=== PATIENT | male | born 1960 | race Caucasian/White ===

== ENCOUNTER 2017-10-15 19:14 | Inpatient (IN) ==
--- NOTE | 2017-10-15 20:12 | Emergency Department Note ---
Disposition Clinical Impression: Nonspecific ST-T wave electrocardiographic changes, Urinary retention Dyspnea Qualifiers: Dyspnea type: dyspnea on exertion Qualified Code(s): R06.09 - Other forms of dyspnea Chest pain Qualifiers: Chest pain type: unspecified Qualified Code(s): R07.9 - Chest pain, unspecified Disposition: Admitted As Inpatient Condition: Fair Time of Disposition: 22:28 General Adult HPI - General Chief complaint: ED General Medical Stated complaint: "kidney issues" Time Seen by Provider: 10/15/17 20:00 Source: patient, family Mode of arrival: ambulatory Limitations: no limitations Nursing Notes Reviewed: Yes Vital Signs Reviewed: Yes - History of Present Illness HPI Narrative: 56-year-old male with history of hypertension, CAD presents for evaluation of "kidney issues". Patient has difficulty urinating over the past week. States he has been dribbling. Patient also notes significant swelling in his hands and his feet. Notes dyspnea. Denies history of prostate issues. Denies any chest pain. Family states is been complaining of pain everywhere. Denies any fevers or cough. Patient does note some abdominal pain with diarrhea. Pain Scale: 10 - Related Data Home Medications Medication Instructions Recorded Confirmed Rivaroxaban [Xarelto] 20 mg PO QAM 03/21/16 10/15/17 Furosemide [Lasix] 40 mg PO DAILY 10/15/17 10/15/17 Pregabalin [Lyrica] 150 mg PO TID 10/15/17 10/15/17 Allergies Allergy/AdvReac Type Severity Reaction Status Date / Time No Known Allergies Allergy Verified 10/15/17 19:41 All systems ED: reviewed and negative except as stated. Constitutional: Denies: fever Cardiovascular: Denies: chest pain Respiratory: Denies: cough, dyspnea Gastrointestinal: Reports: abdominal pain, diarrhea. Denies: nausea, vomiting Past Medical History - Past Medical History Source: patient Medical history: Reports: atrial fibrillation, hyperlipidemia, hypertension Psychiatric history: Reports: anxiety, depression - Social History Smoking Status: Current every day smoker Smokeless Tobacco Status: No Alcohol use: Reports: none Drug use: Reports: none Physical Exam - General Limitations: no limitations General appearance: alert, in no apparent distress, obese - Head Head exam: atraumatic, normocephalic, normal inspection - Eye Eye exam: Present: normal appearance, PERRL, EOMI - ENT ENT exam: normal exam, normal oropharynx, mucous membranes moist - Neck Neck exam: Present: normal inspection, trachea midline - Chest Chest inspection: Present: normal inspection, symmetric chest wall rise - Respiratory Respiratory exam: Present: normal lung sounds bilaterally. Absent: respiratory distress - Cardiovascular Cardiovascular exam: Present: regular rate, normal rhythm. Absent: systolic murmur - Abdominal Exam Abdominal exam: Present: soft, Non-Tender - Extremities Exam Extremities exam: Present: normal inspection, pedal edema (trace) - Expanded Lower Extremity Exam Neurovascular/Tendon exam: Present: normal capillary refill. Absent: pulse deficit, motor deficit, sensory deficit - Back Exam Back exam: Present: normal inspection. Absent: CVA tenderness (R), CVA tenderness (L) - Neurological Exam Neurological exam: Present: alert, oriented X3, CN II-XII intact - Expanded Neurological Exam Patient oriented to: Present: person Speech: Present: fluid speech Motor strength - LUE: 5/5 Motor strength - RUE: 5/5 Motor strength - LLE: 5/5 Motor strength - RLE: 5/5 Coma Scale Eye Opening: Spontaneous Coma Scale Motor Response: Obeys Commands Coma Scale Verbal Response: Oriented Coma Scale Total: 15 - Skin Skin exam: Present: warm, dry, intact, normal color Course Course Narrative: Patient seen and examined. Patient will get CT imaging abdomen pelvis. Patient also get UA urine catheter as well as basic labs. Disposition pending. Vital Signs Temperature 98.1 F 10/15/17 19:36 Pulse Rate 63 10/15/17 19:36 Respiratory Rate 18 10/15/17 19:36 Blood Pressure 180/102 10/15/17 19:36 O2 Sat by Pulse Oximetry 97 10/15/17 19:36 Temperature 97.5 F L 10/17/17 00:03 Pulse Rate 61 10/17/17 00:03 Respiratory Rate 20 10/17/17 00:03 Blood Pressure 156/87 10/17/17 00:03 O2 Sat by Pulse Oximetry 92 10/17/17 00:03 Oxygen Delivery Oxygen Delivery Room Air Medical Decision Making - MDM Narrative Medical decision making narrative: 56-year-old male with a history of hypertension, ACS presents for evaluation of "kidney issues". Patient states even having swelling of his arms and his legs has had dribbling of urine over the past week. Patient also notes significant dyspnea. Patient reports "pain everywhere". Patient notes pain in the shoulders arms elbows. Patient had basic labs including a troponin as well as a BMP. Patient also had a chest x-ray. Initial concerns for ACS equivalent with the patient's dyspnea and history of ACS. Patient does have EKG changes with T-wave inversions in V5 and 6. Given the patient's "pain everywhere as well as T-wave inversions. Patient will be admitted for further evaluation. Patient is presumably on Coumadin for A. fib however the patient is subtherapeutic area patient received aspirin. Patient also got a single dose of nitroglycerin. Patient had a Mejia placed. Patient likely has BPH related to his acute urinary retention however there is no evidence of kidney injury or UTI. There is no signs of central etiology that could explain the patient's urinary retention. Muscle strength is equal the lower extremities bilaterally. - Lab Data Lab results reviewed: Yes I reviewed the patient's lab results. Result diagrams: 10/16/17 01:54 10/16/17 01:54 Lab Results 10/15/17 10/15/17 10/15/17 Range/Units 20:00 20:00 20:00 WBC 7.9 (4.3-11.1) K/mcL RBC 5.47 (4.19-5.50) M/mcL Hgb 14.6 (12.9-16.9) g/dL Hct 46.2 (37.5-50.1) % MCV 84.5 (83.0-100.0) fL MCH 26.7 L (28.0-33.3) pg MCHC 31.6 (31.6-35.5) g/dL RDW 19.9 H (11.5-14.5) % Plt Count 254 (140-400) K/mcL MPV 9.7 (9.4-12.4) fL Immature Gran % 0.3 (0-4) % Seg Neutrophils % 57.2 % Lymphocytes % 34.5 % Monocytes % 5.7 % Eosinophils % 2.0 % Basophils % 0.3 % Neutrophils # 4.5 (1.6-8.9) K/mcL Lymphocytes # 2.7 (0.6-4.6) K/mcL Monocytes # 0.5 (0.0-1.3) K/mcL Eosinophils # 0.2 (0.0-0.6) K/mcL Basophils # 0.0 (0.0-0.2) K/mcL PT (9.4-12.1) Seconds INR APTT (26.0-36.0) Seconds Sodium 139 (136-145) mEq/L Potassium 4.4 (3.5-5.1) mEq/L Chloride 101 (98-107) mEq/L Carbon Dioxide 31 H (23-29) mEq/L BUN 12 (6-20) mg/dL Creatinine 1.18 (0.70-1.30) mg/dL Est GFR ( Amer) > 60 (> 60) Est GFR (Non-Af Amer) > 60 (> 60) BUN/Creatinine Ratio 10 (6-26) Glucose 96 (70-105) mg/dL Calculated Osmolality 288 (280-300) Calcium 9.3 (8.6-10.3) mg/dL Troponin I < 0.03 (< 0.04) ng/mL B-Natriuretic Peptide 12 (Less than 100) pg/mL Urine Color (Yellow) Urine Clarity (Clear) Urine pH (5.0-8.0) pH Units Ur Specific [place] (1.010-1.025) Urine Protein (Neg-Trace) mg/dL Urine Glucose (UA) (Normal) mg/dL Urine Ketones (Negative) mg/dL Urine Blood (Negative) Urine Nitrite (Negative) Urine Bilirubin (Negative) Urine Urobilinogen (Normal) mg/dL Ur Leukocyte Esterase (Negative) Ur Culture Indicated? (NO) 10/15/17 10/15/17 Range/Units 20:00 20:19 WBC (4.3-11.1) K/mcL RBC (4.19-5.50) M/mcL Hgb (12.9-16.9) g/dL Hct (37.5-50.1) % MCV (83.0-100.0) fL MCH (28.0-33.3) pg MCHC (31.6-35.5) g/dL RDW (11.5-14.5) % Plt Count (140-400) K/mcL MPV (9.4-12.4) fL Immature Gran % (0-4) % Seg Neutrophils % % Lymphocytes % % Monocytes % % Eosinophils % % Basophils % % Neutrophils # (1.6-8.9) K/mcL Lymphocytes # (0.6-4.6) K/mcL Monocytes # (0.0-1.3) K/mcL Eosinophils # (0.0-0.6) K/mcL Basophils # (0.0-0.2) K/mcL PT 18.7 H (9.4-12.1) Seconds INR 1.7 APTT 51.7 H (26.0-36.0) Seconds Sodium (136-145) mEq/L Potassium (3.5-5.1) mEq/L Chloride (98-107) mEq/L Carbon Dioxide (23-29) mEq/L BUN (6-20) mg/dL Creatinine (0.70-1.30) mg/dL Est GFR ( Amer) (> 60) Est GFR (Non-Af Amer) (> 60) BUN/Creatinine Ratio (6-26) Glucose (70-105) mg/dL Calculated Osmolality (280-300) Calcium (8.6-10.3) mg/dL Troponin I (< 0.04) ng/mL B-Natriuretic Peptide (Less than 100) pg/mL Urine Color Yellow (Yellow) Urine Clarity Clear (Clear) Urine pH 7.0 (5.0-8.0) pH Units Ur Specific [place] 1.023 (1.010-1.025) Urine Protein Negative (Neg-Trace) mg/dL Urine Glucose (UA) Normal (Normal) mg/dL Urine Ketones Negative (Negative) mg/dL Urine Blood Negative (Negative) Urine Nitrite Negative (Negative) Urine Bilirubin Negative (Negative) Urine Urobilinogen Normal (Normal) mg/dL Ur Leukocyte Esterase Negative (Negative) Ur Culture Indicated? NO (NO) - Radiology Data Radiology results reviewed: Yes I reviewed the patient's radiology results. Chest X-Ray 10/15/17 19:42 IMPRESSION: No acute process. D/ / Bharat Mendez MD / Bharat Mendez MD Interpreting Provider: Bharat Mendez MD Abdomen/Pelvis CT 10/15/17 20:05 IMPRESSION: 1. No acute findings identified in the abdomen and pelvis. No evidence of hydronephrosis. D/ / Chiki Loyola MD / Chiki Loyola MD Interpreting Provider: Chiki Loyola MD - EKG Data EKG #1 EKG attestation: Yes I reviewed and interpreted this EKG. EKG shows normal: sinus rhythm Rate: normal Rhythm: NSR [place]/QRS: normal Q waves: v1, v2 T wave inversions noted in: v5, v6 When compared to previous EKG there are: changes noted Interpretation: nonspecific ST-T wave changes S.B.A.R. - S.B.A.R. Situation: Demographics Background: Presenting Complaint Assessment: Vital Signs, Course and respsone to treatment, Patient/Family Expectation Recommendation: Barrier(s) to disposition, Recommendation based on pending studies, treatments, or consults S.B.A.R. Report Given to: Dr. Delonte Messina Repor Time: 22:05 Attestation Statement - Attestation Attestation: I examined this patient and my medical decision-making was reviewed with the Resident Physician. I agree with the documented findings, disposition and treatment plan as described except to the extent set forth below. Findings consistent with urinary retention, concern for kidney injury. Creatinine is stable however patient does have urinary retention. Catheter will be placed, patient be admitted for further management to the hospitalist service.
[2017-10-15 20:18] LABS: Basophils % 0.3 %; Eosinophils # 0.2 K/mcL (0.0-0.6); Hematocrit 46.2 % (37.5-50.1); Hemoglobin 14.6 g/dL (12.9-16.9); Immature Granulocytes % 0.3 % (0-4); Lymphocytes # 2.7 K/mcL (0.6-4.6); Lymphocytes % 34.5 %; Mean Corpuscular HGB Conc 31.6 g/dL (31.6-35.5); Mean Corpuscular Hemoglobin 26.7 pg (28.0-33.3); Mean Corpuscular Volume 84.5 fL (83.0-100.0); Mean Platelet Volume 9.7 fL (9.4-12.4); Monocytes # 0.5 K/mcL (0.0-1.3); Monocytes % 5.7 %; Neutrophils # 4.5 K/mcL (1.6-8.9); Platelet Count 254 K/mcL (140-400); Red Blood Count 5.47 M/mcL (4.19-5.50); Red Cell Distribution Width 19.9 % (11.5-14.5); Segmented Neutrophils % 57.2 %
[2017-10-15 20:30] LABS: Bilirubin,Urine Negative (Negative); Blood,Urine Negative (Negative); Clarity,Urine Clear (Clear); Color,Urine Yellow (Yellow); Glucose,Urine (UA) Normal (Normal); Ketones,Urine Negative (Negative); Leukocyte Esterase,Urine Negative (Negative); Nitrite,Urine Negative (Negative); Protein,Urine Negative (Neg-Trace); Specific Gravity,Urine 1.023 (1.010-1.025); Urobilinogen,Urine Normal (Normal)
[2017-10-15 20:37] LABS: BUN/Creatinine Ratio 10 (6-26); Blood Urea Nitrogen 12 mg/dL (6-20); Calcium 9.3 mg/dL (8.6-10.3); Carbon Dioxide 31 mEq/L (23-29); Chloride 101 mEq/L (98-107); Glucose 96 mg/dL (70-105); Osmolality,Calculated 288 (280-300); Potassium 4.4 mEq/L (3.5-5.1); Sodium 139 mEq/L (136-145); eGFR For African Americans > 60 (> 60); eGFR For Non-African Americans > 60 (> 60)
[2017-10-15 20:39] LABS: Troponin I < 0.03 ng/mL (< 0.04)
[2017-10-15] MEDS ORDERED: Aspirin 81 MG TAB.CHEW PO ONE (21:37)
[2017-10-15 21:59] LABS: INR 1.7; Prothrombin Time 18.7 Seconds (9.4-12.1)
[2017-10-15 22:01] LABS: Activated Partial Thrombo Time 51.7 Seconds (26.0-36.0)
[2017-10-15] MEDS ORDERED: Nitroglycerin 0.4 MG TAB.SUBL SL ONE (22:03)
[2017-10-16] MEDS ORDERED: Acetaminophen 325 MG TABLET PO PRN (00:36)
[2017-10-16] MEDS ORDERED: Naloxone 0.4 MG/ML INJ IVP PRN (00:36)
[2017-10-16 02:07] LABS: Basophils % 0.1 %; Eosinophils # 0.1 K/mcL (0.0-0.6); Eosinophils % 1.7 %; Hematocrit 46.9 % (37.5-50.1); Hemoglobin 15.2 g/dL (12.9-16.9); Immature Granulocytes % 0.3 % (0-4); Lymphocytes # 3.1 K/mcL (0.6-4.6); Mean Corpuscular HGB Conc 32.4 g/dL (31.6-35.5); Mean Corpuscular Hemoglobin 27.1 pg (28.0-33.3); Mean Corpuscular Volume 83.6 fL (83.0-100.0); Mean Platelet Volume 9.5 fL (9.4-12.4); Monocytes # 0.4 K/mcL (0.0-1.3); Monocytes % 4.8 %; Neutrophils # 3.8 K/mcL (1.6-8.9); Platelet Count 230 K/mcL (140-400); Red Blood Count 5.61 M/mcL (4.19-5.50); Red Cell Distribution Width 18.7 % (11.5-14.5); Segmented Neutrophils % 51.1 %
[2017-10-16 02:14] LABS: INR 1.7; Prothrombin Time 18.9 Seconds (9.4-12.1)
[2017-10-16 02:16] LABS: Activated Partial Thrombo Time 50.1 Seconds (26.0-36.0)
[2017-10-16 02:32] LABS: Alanine Aminotransferase 27 Units/L (7-52); Albumin 4.4 g/dL (3.5-5.7); Albumin/Globulin Ratio 1.6 (1.1-2.2); Alkaline Phosphatase 59 Units/L (34-104); Aspartate Amino Transferase 40 Units/L (13-39); BUN/Creatinine Ratio 10 (6-26); Bilirubin,Total 0.3 mg/dL (0.3-1.0); Blood Urea Nitrogen 11 mg/dL (6-20); Calcium 9.2 mg/dL (8.6-10.3); Carbon Dioxide 29 mEq/L (23-29); Chloride 102 mEq/L (98-107); Chol/HDL Ratio 5.6 (0-4.9); Cholesterol 330 mg/dL (< 200); Globulin 2.7 g/dL (2.4-3.5); Glucose 98 mg/dL (70-105); HDL Cholesterol 59 mg/dL (40-59); LDL Cholesterol,Calculated 228 mg/dL (0-99); Magnesium 2.4 mg/dL (1.6-2.6); Osmolality,Calculated 287 (280-300); Potassium 3.8 mEq/L (3.5-5.1); Sodium 139 mEq/L (136-145); Total Protein 7.1 g/dL (6.4-8.9); Triglycerides 213 mg/dL (< 150); eGFR For African Americans > 60 (> 60); eGFR For Non-African Americans > 60 (> 60)
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
--- NOTE | 2017-10-16 07:17 | Electrocardiograph Report ---
[place] [id number] Test Date: 2017-10-15 Pat Name: Colt Reyes Department: [id number] Room: 2A25 Gender: M Manufacturing Engineering Director: FERNANDO : 1960 Requested By: Nader Franco Order Number: [id number] Reading MD: Cristopher Faith Measurements Intervals [place] Rate: 60 P: 73 RI: 221 QRS: 14 QRSD: 90 T: 163 QT: 439 QTc: 439 Interpretive Statements SINUS RHYTHM WITH FIRST DEGREE AV BLOCK Poor R wave progression Electronically Signed On 10-16-2017 7:15:55 EDT by Cristopher Faith
[2017-10-16] MEDS: *HR* Rivaroxaban 10 MG TABLET PO SCH (07:35)
[2017-10-16] MEDS: Pregabalin 75 MG CAPSULE PO SCH ×3 (07:35→20:30)
[2017-10-16] MEDS: Furosemide 40 MG TABLET PO SCH (11:22)
[2017-10-16] MEDS: Nicotine 21 MG PATCH.TD24 TD SCH (11:22)
[2017-10-16] MEDS ORDERED: Perflutren Lipid Microsphere 1.3 ML in 0.9 % Sodium Chloride 8.7 ML IVP ONE (15:34)
--- NOTE | 2017-10-16 15:59 | Event Note ---
Date of Encounter: 10/16/17 Time of Encounter: 09:30 Patient feeling better this morning. Chest pain has improved. Denies any shortness of breath or palpitations. Does have chronic pedal edema. We will resume Lasix. Plan for stress test in a.m. 2-D echocardiogram ordered. Mejia catheter placed for urinary retention. Will discharge patient when medically ready with plan for outpatient follow-up with urology. Will place patient on Flomax.
[2017-10-17] MEDS ORDERED: Regadenoson 0.4 MG/5 ML SYRINGE IVP ONE (06:31)
[2017-10-17] MEDS: Aspirin Enteric Coated 81 MG Tablet PO SCH (11:03)
[2017-10-17] MEDS: Pregabalin 75 MG CAPSULE PO SCH ×3 (11:04→20:25)
[2017-10-17] MEDS: Nicotine 21 MG PATCH.TD24 TD SCH (11:04)
[2017-10-17] MEDS: Furosemide 40 MG TABLET PO SCH (11:04)
[2017-10-17] MEDS: *HR* Rivaroxaban 10 MG TABLET PO SCH (11:04)
--- NOTE | 2017-10-17 14:43 | Internal Med Progress Note ---
Date of Encounter: 10/17/17 Time of Encounter: 14:40 - Assessment and plan (1) Chest pain Current Visit: Yes Status: Acute Assessment and plan: chest pain improved. Pending stress test. Troponins negative. Qualifiers: Chest pain type: precordial pain Qualified Code(s): R07.2 - Precordial pain (2) Nonspecific ST-T wave electrocardiographic changes Current Visit: Yes Status: Acute Assessment and plan: Awaiting stress test results. 2-D echocardiogram shows normal ejection fraction of 60%. He does have mild left ventricle diastolic dysfunction. Wall segments showed normal motion. (3) Urinary retention Current Visit: Yes Status: Acute Assessment and plan: Continue urinary catheter. Follow-up outpatient with urology. Started on Flomax. (4) Periorbital edema Current Visit: Yes Status: Resolved Assessment and plan: Resolved now. (5) DVT prophylaxis Current Visit: Yes Status: Acute Assessment and plan: Place patient on SCDs. (6) Essential hypertension Current Visit: Yes Status: Acute Assessment and plan: Started patient on chlorthalidone. Blood pressure is better controlled today. (7) Hyperlipidemia Current Visit: Yes Status: Chronic Assessment and plan: Uncontrolled. Total cholesterol 3:30 with LDL of 228. Will increase atorvastatin to 80 mg by mouth daily Qualifiers: Hyperlipidemia type: mixed hyperlipidemia Qualified Code(s): E78.2 - Mixed hyperlipidemia - Time Spent With Patient Total time spent is greater than 50% in coordination of care (as documented) at patient's floor/unit and/or counseling patient: - Subjective Interval history: Patient underwent initial part of his cardiac stress test today. No complaints at this time. Reports that he has had abnormal thyroid hormone levels in the past and wants to get it checked. No further episodes of chest pain. No nausea or vomiting. No shortness of breath. Notes that his swelling has improved overall. - Constitutional Vitals: Temp Pulse Resp BP Pulse Ox 98.0 F 68 19 132/86 95 10/17/17 11:19 10/17/17 11:19 10/17/17 11:19 10/17/17 11:19 10/17/17 11:19 General appearance: Present: cooperative, A&O X 3, pleasant, no acute distress, answers questions appropriately - Eye Additional comments: Periorbital swelling has resolved - Neck Neck exam general surgery: Present: supple, trachea midline. Absent: lymphadenopathy - Respiratory Respiratory exam: Present: CTAB. Absent: accessory muscle use, rales, rhonchi, wheezes - Cardiovascular Cardiovascular exam: Present: RRR, +S1, +S2. Absent: diastolic murmur, gallop, rubs, systolic murmur - Extremities Exam Extremities exam: Present: pedal edema (Mild pedal edema), warm, radial pulses palpable and symmetrical. Absent: calf tenderness, cyanotic - Neurological Exam Neurological exam: Present: alert, oriented X3, no focal deficits. Absent: facial droop, speech deficit Internal Medicine: Result - Labs CBC & Chem 7: 10/16/17 01:54 10/16/17 01:54 - ABG Interpretation ABG results: PT/INR, D-dimer PT 18.9 Seconds (9.4-12.1) H 10/16/17 01:54 - Impressions Impressions Echocardiogram 10/16/17 00:36 Impressions: Technically sub-optimal due to poor echocardiographic windows. LVEF 60%. Normal LV chamber size and function. Grossly, mild asymmetric hypertrophy of the basal septum. Mild left ventricular diastolic dysfunction. Right ventricle was not well visualized. Function was grossly normal. No evidence of pulmonary hypertension. No evidence of pulmonary hypertension. RVSP was not well obtained and could be underestimated. No obvious significant valvular dysfunction. Left Ventricular Wall Motion: Rest Echo Findings All wall segments showed normal motion. Findings: Study Quality * Technically sub-optimal due to poor echocardiographic windows. ECG Findings * Sinus rhythm with BBB. Left Ventricle * LVEF 60%. * Normal LV chamber size and function. * Grossly, mild asymmetric hypertrophy of the basal septum. * Mild left ventricular diastolic dysfunction. Right Ventricle * Right ventricle was not well visualized. Function was grossly normal. Left Atrium * Moderately dilated left atrium. Right Atrium * Mildly dilated right atrium. Aortic Valve * Aortic valve not well visualized. * No aortic regurgitation. * No aortic stenosis. Mitral Valve * Normal mitral valve structure and function. * No mitral regurgitation. * No mitral stenosis. Tricuspid Valve * Normal tricuspid valve structure and function. * Trace tricuspid regurgitation. * No evidence of pulmonary hypertension. RVSP was not well obtained and could be underestimated. Pulmonic Valve * Pulmonic valve is not well visualized. * No pulmonic regurgitation. Aorta * Normally sized aortic root. Pericardium * The pericardium appears normal. IVC * Grossly normal IVC dimensions and inspiratory collapse. Pulmonary Artery * Pulmonary artery not well visualized. Retroperitoneum Ultrasound 10/16/17 15:00 IMPRESSION: Left lower pole renal cortical cyst as seen on prior CT examination. No acute abnormality of the kidneys or urinary bladder. No evidence of hydronephrosis. D/ / Roger Robles MD / Roger Robles MD Interpreting Provider: Roger Robles MD Consult Discharge Plan - Plan Referrals: Rodri Adams DO [Primary Care Provider] -
[2017-10-18 06:30] LABS: BUN/Creatinine Ratio 11 (6-26); Blood Urea Nitrogen 14 mg/dL (6-20); Calcium 9.9 mg/dL (8.6-10.3); Carbon Dioxide 29 mEq/L (23-29); Chloride 98 mEq/L (98-107); Glucose 109 mg/dL (70-105); Osmolality,Calculated 287 (280-300); Potassium 3.5 mEq/L (3.5-5.1); Sodium 138 mEq/L (136-145); eGFR For African Americans > 60 (> 60); eGFR For Non-African Americans 59 (> 60)
[2017-10-18] MEDS: Nicotine 21 MG PATCH.TD24 TD SCH (09:47)
[2017-10-18] MEDS: *HR* Rivaroxaban 10 MG TABLET PO SCH (09:48)
[2017-10-18] MEDS: Pregabalin 75 MG CAPSULE PO SCH ×3 (09:48→22:28)
[2017-10-18] MEDS: Furosemide 40 MG TABLET PO SCH (09:49)
[2017-10-18] MEDS: Aspirin Enteric Coated 81 MG Tablet PO SCH (09:49)
--- NOTE | 2017-10-18 15:12 | Internal Med Progress Note ---
Date of Encounter: 10/18/17 Time of Encounter: 15:10 - Assessment and plan (1) Chest pain Current Visit: Yes Status: Acute Assessment and plan: No longer having chest pain. However stress test was abnormal. Consulted cardiology for recommendations. Qualifiers: Chest pain type: precordial pain Qualified Code(s): R07.2 - Precordial pain (2) Nonspecific ST-T wave electrocardiographic changes Current Visit: Yes Status: Acute Assessment and plan: Patient had abnormal stress test. Cardiology consulted (3) Urinary retention Current Visit: Yes Status: Acute Assessment and plan: Mejia catheter in place. Started on Flomax. Outpatient follow-up with urology. (4) Periorbital edema Current Visit: Yes Status: Resolved (5) DVT prophylaxis Current Visit: Yes Status: Acute Assessment and plan: On Xarelto (6) Essential hypertension Current Visit: Yes Status: Chronic Assessment and plan: Controlled. Continue current medications (7) Hyperlipidemia Current Visit: Yes Status: Chronic Assessment and plan: Continue Lipitor Qualifiers: Hyperlipidemia type: mixed hyperlipidemia Qualified Code(s): E78.2 - Mixed hyperlipidemia (8) Hypothyroidism Current Visit: Yes Status: Acute Assessment and plan: Patient has elevated TSH. We will start him on levothyroxine. Recommend repeat labs in 6 weeks. Qualifiers: Hypothyroidism type: other Qualified Code(s): E03.8 - Other specified hypothyroidism (9) Hypokalemia Current Visit: Yes Status: Acute Assessment and plan: We will replete potassium levels. Could be causing cramps. - Time Spent With Patient Total time spent is greater than 50% in coordination of care (as documented) at patient's floor/unit and/or counseling patient: - Subjective Interval history: Patient complains of a headache. Feels tired but denies any chest pain. He is able to breathe better. No having any swelling in his legs but does complain of cramps in his lower extremities - Constitutional Vitals: Temp Pulse Resp BP Pulse Ox 97.6 F 73 19 145/89 96 10/18/17 11:23 10/18/17 11:23 10/18/17 11:23 10/18/17 11:23 10/18/17 11:23 General appearance: Present: cooperative, A&O X 3, pleasant, no acute distress, obese, answers questions appropriately - Respiratory Respiratory exam: Present: CTAB. Absent: accessory muscle use, rales, rhonchi, wheezes - Cardiovascular Cardiovascular exam: Present: RRR, +S1, +S2. Absent: diastolic murmur, gallop, rubs, systolic murmur - GI/Abdominal GI/Abdominal exam: Present: normal bowel sounds, soft, no peritoneal signs. Absent: distended, tenderness - Extremities Exam Extremities exam: Present: warm, radial pulses palpable and symmetrical. Absent : calf tenderness, cyanotic, pedal edema Internal Medicine: Result - Labs CBC & Chem 7: 10/16/17 01:54 10/18/17 05:31 Labs: BMP 10/18/17 05:31 Sodium 138 Potassium 3.5 Chloride 98 Carbon Dioxide 29 BUN 14 Creatinine 1.27 Glucose 109 H Calcium 9.9 - ABG Interpretation ABG results: PT/INR, D-dimer PT 18.9 Seconds (9.4-12.1) H 10/16/17 01:54 - VTE Documentation of Mechanical Device: Intermittent pneumatic compression device Consult Discharge Plan - Plan Referrals: Rodri Adams DO [Primary Care Provider] -
[2017-10-19] MEDS: traMADol 50 MG TABLET PO PRN ×2 (00:53→21:25)
[2017-10-19 09:55] LABS: BUN/Creatinine Ratio 15 (6-26); Blood Urea Nitrogen 18 mg/dL (6-20); Calcium 9.7 mg/dL (8.6-10.3); Carbon Dioxide 26 mEq/L (23-29); Chloride 96 mEq/L (98-107); Glucose 107 mg/dL (70-105); Osmolality,Calculated 278 (280-300); Potassium 3.3 mEq/L (3.5-5.1); Sodium 133 mEq/L (136-145); eGFR For African Americans > 60 (> 60); eGFR For Non-African Americans > 60 (> 60)
[2017-10-19] MEDS: *HR* Rivaroxaban 10 MG TABLET PO SCH (10:02)
[2017-10-19] MEDS: Aspirin Enteric Coated 81 MG Tablet PO SCH (10:02)
[2017-10-19] MEDS: Furosemide 40 MG TABLET PO SCH (10:02)
[2017-10-19] MEDS: Nicotine 21 MG PATCH.TD24 TD SCH (10:03)
[2017-10-19] MEDS: Pregabalin 75 MG CAPSULE PO SCH ×3 (10:03→21:24)
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
--- NOTE | 2017-10-19 15:20 | Internal Med Progress Note ---
Date of Encounter: 10/19/17 Time of Encounter: 09:20 - Assessment and plan (1) Chest pain Current Visit: Yes Status: Acute Assessment and plan: With abnormal stress test. Chest pain has now improved. Cardiology consulted. We will follow recommendations. Most likely patient will need left heart catheterization. Qualifiers: Chest pain type: precordial pain Qualified Code(s): R07.2 - Precordial pain (2) Nonspecific ST-T wave electrocardiographic changes Current Visit: Yes Status: Acute Assessment and plan: With abnormal stress test. Plan for left heart catheterization tomorrow. (3) Urinary retention Current Visit: Yes Status: Acute Assessment and plan: Mejia catheter in place. Most likely due to underlying BPH. Follow up with urology as outpatient. Continue Flomax. (4) Periorbital edema Current Visit: Yes Status: Resolved (5) DVT prophylaxis Current Visit: Yes Status: Acute Assessment and plan: On Xarelto. Will hold for planned left heart catheterization tomorrow. (6) Essential hypertension Current Visit: Yes Status: Chronic Assessment and plan: Blood pressure is controlled. Patient is having hypokalemia. Will decrease chlorthalidone dosage. (7) Hyperlipidemia Current Visit: Yes Status: Chronic Assessment and plan: Continue Lipitor Qualifiers: Hyperlipidemia type: mixed hyperlipidemia Qualified Code(s): E78.2 - Mixed hyperlipidemia (8) Hypothyroidism Current Visit: Yes Status: Chronic Assessment and plan: Placed patient on levothyroxine. Qualifiers: Hypothyroidism type: other Qualified Code(s): E03.8 - Other specified hypothyroidism (9) Hypokalemia Current Visit: Yes Status: Acute Assessment and plan: Continue repleting potassium. - Time Spent With Patient Total time spent is greater than 50% in coordination of care (as documented) at patient's floor/unit and/or counseling patient: - Subjective Interval history: Patient is doing well this morning. Had some trouble last night with feeling hot all over and complained of itching on his scalp and headache. This seems to have improved now. He reports that he had a similar reaction when he received Coumadin in the past. Explained to him that he is currently not on Coumadin. Denies any chest pain at this time. No shortness of breath. - Constitutional Vitals: Temp Pulse Resp BP Pulse Ox 97.6 F 66 16 135/85 95 10/19/17 11:00 10/19/17 11:00 10/19/17 11:00 10/19/17 11:00 10/19/17 11:00 General appearance: Present: cooperative, A&O X 3, pleasant, no acute distress, obese, answers questions appropriately - Neck Neck exam general surgery: Present: supple, trachea midline. Absent: lymphadenopathy - Respiratory Respiratory exam: Present: CTAB. Absent: accessory muscle use, rales, rhonchi, wheezes - Cardiovascular Cardiovascular exam: Present: RRR, +S1, +S2. Absent: diastolic murmur, gallop, rubs, systolic murmur - GI/Abdominal GI/Abdominal exam: Present: normal bowel sounds, soft, no peritoneal signs. Absent: distended, tenderness - Extremities Exam Extremities exam: Present: warm, radial pulses palpable and symmetrical. Absent : calf tenderness, cyanotic, pedal edema Internal Medicine: Result - Labs CBC & Chem 7: 10/16/17 01:54 10/19/17 09:29 Labs: BMP 10/19/17 09:29 Sodium 133 L Potassium 3.3 L Chloride 96 L Carbon Dioxide 26 BUN 18 Creatinine 1.22 Glucose 107 H Calcium 9.7 - ABG Interpretation ABG results: PT/INR, D-dimer PT 18.9 Seconds (9.4-12.1) H 10/16/17 01:54 - VTE Documentation of Mechanical Device: Intermittent pneumatic compression device Consult Discharge Plan - Plan Referrals: Rodri Adams DO [Primary Care Provider] -
[2017-10-19 21:03] LABS: Bilirubin,Urine Negative (Negative); Blood,Urine Large (Negative); Clarity,Urine Clear (Clear); Color,Urine Yellow (Yellow); Glucose,Urine (UA) Normal (Normal); Ketones,Urine Negative (Negative); Leukocyte Esterase,Urine Trace (Negative); Nitrite,Urine Negative (Negative); PH,Urine 6.5 pH Units (5.0-8.0); Protein,Urine Trace mg/dL (Neg-Trace); Specific Gravity,Urine 1.006 (1.010-1.025); Urobilinogen,Urine Normal (Normal)
[2017-10-19 21:04] LABS: Bacteria,Urine None Seen per hpf (None-Few); Hyaline Casts,Urine None Seen per lpf (None-Few); RBC,Urine 15-30 per hpf (0-3); Squamous Epithelial Cell,Urine Moderate per lpf (None-Few); WBC,Urine 0-3 per hpf (0-3)
--- NOTE | 2017-10-20 05:24 | Event Note ---
Date of Encounter: 10/20/17 Time of Encounter: 05:22 Called by RN stating patient is majorly depressed and reporting "I have nothing to live for". RN requesting psychiatry consult on patient. I ordered Psychiatry consult and called 1A to request consult.
[2017-10-20 07:06] LABS: Basophils % 0.4 %; Eosinophils # 0.3 K/mcL (0.0-0.6); Eosinophils % 2.8 %; Hematocrit 47.4 % (37.5-50.1); Hemoglobin 15.8 g/dL (12.9-16.9); Immature Granulocytes % 0.5 % (0-4); Lymphocytes # 3.8 K/mcL (0.6-4.6); Lymphocytes % 34.5 %; Mean Corpuscular HGB Conc 33.3 g/dL (31.6-35.5); Mean Corpuscular Hemoglobin 27.7 pg (28.0-33.3); Mean Platelet Volume 9.9 fL (9.4-12.4); Monocytes # 0.8 K/mcL (0.0-1.3); Monocytes % 7.2 %; Platelet Count 277 K/mcL (140-400); Red Blood Count 5.71 M/mcL (4.19-5.50); Red Cell Distribution Width 19.3 % (11.5-14.5); Segmented Neutrophils % 54.6 %
[2017-10-20 07:27] LABS: BUN/Creatinine Ratio 17 (6-26); Blood Urea Nitrogen 22 mg/dL (6-20); Calcium 10.4 mg/dL (8.6-10.3); Carbon Dioxide 32 mEq/L (23-29); Chloride 96 mEq/L (98-107); Glucose 106 mg/dL (70-105); Osmolality,Calculated 288 (280-300); Potassium 4.2 mEq/L (3.5-5.1); Sodium 137 mEq/L (136-145); eGFR For African Americans > 60 (> 60); eGFR For Non-African Americans 58 (> 60)
--- NOTE | 2017-10-20 09:06 | Event Note ---
Date of Encounter: 10/20/17 Time of Encounter: 08:15 - Cardiology Event Note Laboratory Tests 10/16/17 10/20/17 01:54 06:23 INR 1.7 Creatinine 1.28 Est GFR (Non-Af Amer) 58 L Chest pain-free. Xarelto on hold. Plan for catheterization today. All questions answered.
[2017-10-20] MEDS: Furosemide 40 MG TABLET PO SCH (09:42)
[2017-10-20] MEDS: Pregabalin 75 MG CAPSULE PO SCH ×3 (09:42→22:03)
[2017-10-20] MEDS: Nicotine 21 MG PATCH.TD24 TD SCH (09:43)
[2017-10-20] MEDS: Aspirin Enteric Coated 81 MG Tablet PO SCH (09:43)
[2017-10-20] MEDS ORDERED: Hydrocortisone Lotion 59 ML BOTTLE TP PRN (11:10)
--- NOTE | 2017-10-20 12:23 | Pre-Sedation Evaluation ---
Pre-sedation evaluation - Pre-sedation checklist Date of procedure: 10/20/17 Procedure: [facility] Recent Vitals: Last Vital Signs Temp 97.7 F 10/20/17 10:39 Pulse 59 10/20/17 10:39 Resp 18 10/20/17 10:39 BP 148/81 10/20/17 10:39 Pulse Ox 93 10/20/17 10:39 H&P (including ROS) documented in medical record: Yes Previous reaction to sedatives/anesthetics: No Dietary Status: NPO after Midnight Airway Assessment: Patient can open mouth completely, TMJ function normal ASA Classification *see protocol: CLASS II-Mild systemic disease Plan of Care: Pt appropriate candidate for procedure/moderate/conscious sedation , Risks/benefits of procedure/sedation discussed w/ patient/family Cardiac Registry (Cardio Only) - Functional Capacity Functional Capacity: >=4 METS with symptoms - Clincal Frailty Scale Clinical Frailty Scale: Managing Well
[2017-10-20] MEDS ORDERED: Verapamil 5 MG/2 ML VIAL ONE (14:43)
[2017-10-20] MEDS ORDERED: 0.9 % Sodium Chloride 1,000 ML ONE ×2 (14:43→14:56)
[2017-10-20] MEDS ORDERED: *HR* Heparin 10,000 UNIT/10 ML VIAL ONE (14:43)
[2017-10-20] MEDS ORDERED: Heparin 1,000 UNITS/500 mL 500 ML ONE (14:43)
[2017-10-20] MEDS ORDERED: Nitroglycerin 1,000 MCG/10 ML VIAL IV ONE (14:43)
[2017-10-20] MEDS ORDERED: ISOVUE-370 200 ML INFUS..BTL IV ONE (14:43)
[2017-10-20] MEDS ORDERED: *HR* FentaNYL (PF) 100 MCG/2 ML VIAL ONE (14:56)
[2017-10-20] MEDS ORDERED: *HR* Midazolam HCl 5 MG/5 ML VIAL IVP ONE (14:56)
[2017-10-20] MEDS ORDERED: Tirofiban 5 MG/100 mL 5 MG/100 ML VIAL IV ONE (15:37)
[2017-10-20] MEDS ORDERED: Tirofiban 12.5 MG/250ML 12.5 MG/250 ML BAG ONE (15:38)
[2017-10-20] MEDS ORDERED: Ondansetron 4 MG/2 ML VIAL IVP PRN (15:59)
--- NOTE | 2017-10-20 16:21 | Internal Med Progress Note ---
Date of Encounter: 10/20/17 Time of Encounter: 16:14 - Assessment and plan (1) Chest pain Current Visit: Yes Status: Acute Assessment and plan: With abnormal stress test. Pending cardiac catheterization today. We will follow results. Qualifiers: Chest pain type: precordial pain Qualified Code(s): R07.2 - Precordial pain (2) Nonspecific ST-T wave electrocardiographic changes Current Visit: Yes Status: Acute Assessment and plan: Cardiac catheterization planned for today (3) Urinary retention Current Visit: Yes Status: Acute Assessment and plan: With Mejia catheter in place. Patient having hematuria. Monitor hemoglobin levels are stable, if hemoglobin drops or hematuria persist consider consulting urology. Otherwise follow-up outpatient with urology. (4) Periorbital edema Current Visit: Yes Status: Resolved (5) Essential hypertension Current Visit: Yes Status: Chronic Assessment and plan: Blood pressure elevated at this time. If persists, will increase metoprolol dosage. Chlorthalidone dose decreased yesterday due to hypokalemia. (6) Hyperlipidemia Current Visit: Yes Status: Chronic Assessment and plan: Continue statin. Qualifiers: Hyperlipidemia type: mixed hyperlipidemia Qualified Code(s): E78.2 - Mixed hyperlipidemia (7) Hypothyroidism Current Visit: Yes Status: Chronic Assessment and plan: Diagnosis. Continue levothyroxine. Recheck TSH in 6 weeks. Qualifiers: Hypothyroidism type: other Qualified Code(s): E03.8 - Other specified hypothyroidism (8) Hypokalemia Current Visit: Yes Status: Acute Assessment and plan: Continue to replete orally (9) Depression Current Visit: Yes Status: Suspected Assessment and plan: Patient appears to be depressed. Overnight he apparently indicated to the nurse stating "I have nothing to live for". Psychiatry has been consulted. We will follow recommendations. Qualifiers: Depression Type: major depressive disorder Major depression recurrence: single episode Active/Remission status: currently active Psychotic features : without psychotic features Qualified Code(s): F32.2 - Major depressive disorder, single episode, severe without psychotic features (10) DVT prophylaxis Current Visit: Yes Status: Acute Assessment and plan: Xarelto held for left heart catheterization. Resume post [facility] - Time Spent With Patient Total time spent is greater than 50% in coordination of care (as documented) at patient's floor/unit and/or counseling patient: - Subjective Interval history: Patient complains of itching and scabs over his scalp. This is an issue his been dealing with for some time. He also has noticed some discharge in his right ear. No pain or tenderness reported. No hearing difficulty. Patient has also been having hematuria. - Constitutional Vitals: Temp Pulse Resp BP Pulse Ox 97.7 F 59 18 148/81 93 10/20/17 10:39 10/20/17 10:39 10/20/17 10:39 10/20/17 10:39 10/20/17 10:39 General appearance: Present: cooperative, A&O X 3, pleasant, no acute distress, obese, answers questions appropriately - Head Additional comments: Multiple scabs on the patient's scalp signs of dermatitis - ENT Additional comments: Clear discharge noted on patient's right pinna. Nontender to palpation. No erythema or swelling in the external auditory canal. - Respiratory Respiratory exam: Present: CTAB. Absent: accessory muscle use, rales, rhonchi, wheezes - Cardiovascular Cardiovascular exam: Present: RRR, +S1, +S2. Absent: diastolic murmur, gallop, rubs, systolic murmur - GI/Abdominal GI/Abdominal exam: Present: normal bowel sounds, soft, no peritoneal signs. Absent: distended, tenderness - Extremities Exam Extremities exam: Present: warm, radial pulses palpable and symmetrical. Absent : calf tenderness, cyanotic, pedal edema - Neurological Exam Neurological exam: Present: CN II-XII intact, oriented X3, no focal deficits. Absent: facial droop, speech deficit - Skin Skin exam: Present: dry, intact Internal Medicine: Result - Labs CBC & Chem 7: 10/20/17 06:23 10/20/17 06:23 Labs: Short CBC 10/20/17 Range/Units 06:23 WBC 11.0 (4.3-11.1) K/mcL Hgb 15.8 (12.9-16.9) g/dL Hct 47.4 (37.5-50.1) % Plt Count 277 (140-400) K/mcL Neutrophils # 6.0 (1.6-8.9) K/mcL BMP 10/20/17 06:23 Sodium 137 Potassium 4.2 D Chloride 96 L Carbon Dioxide 32 H BUN 22 H Creatinine 1.28 Glucose 106 H Calcium 10.4 H Urine 10/19/17 Range/Units 20:32 Urine Color Yellow (Yellow) Urine Clarity Clear (Clear) Urine pH 6.5 (5.0-8.0) pH Units Ur Specific [place] 1.006 L (1.010-1.025) Urine Protein Trace (Neg-Trace) mg/dL Urine Glucose (UA) Normal (Normal) mg/dL - ABG Interpretation ABG results: PT/INR, D-dimer PT 18.9 Seconds (9.4-12.1) H 10/16/17 01:54 - VTE Documentation of Mechanical Device: Intermittent pneumatic compression device Consult Discharge Plan - Plan Referrals: Rodri Adams DO [Primary Care Provider] -
[2017-10-20] MEDS: Loratadine 10 MG TABLET PO SCH (16:49)
[2017-10-20] MEDS: Famotidine 20 MG TABLET PO SCH (16:50)
--- NOTE | 2017-10-20 18:43 | Consult Note ---
Date of Encounter: 10/20/17 Time of Encounter: 17:00 Assessment & Recommendation (1) Major depressive disorder without psychotic features Current visit: Yes Status: Acute (2) Generalized anxiety disorder Current visit: Yes Status: Acute History of Present Illness Patient: new to practice Requesting Physician: Niki Cade MD Reason for consult: depression History of present illness: CC: I'm depressed doc Pt is a 57 yo,, male, who presents for Major Depressive D/O, moderate and general anxiety d/o . Pt noted that he feels he is still very depressed. Pt noted I still occasionally have thoughts to harm myself..nothing current though. Pt denied any side effects to current medications. Pt noted he was previously on sertraline and it workd "very well....can I get back on it." Pt noted he felt safe and comfortable on the unit and will tell staff if things get bad again. Pt was in agreement with current treatment plan. Pt noted that he is doing alright today. Pt noted he slept alright last night. Pt noted his appetite is decreased. Pt rated his depression a 10, on a scale of zero to ten with ten being the worst and zero being none. Pt rate his anxiety a 10, on the same scale. Pt denied any auditory or visiual hallucinations. Pt denied any current thoughts to harm himself or anyone else. No TD noted, AIMS=0 Pt denies any hx of HIV, TBI, Seizures or Hep C. MSE: Alert and Oriented x4 Appearance: neatly groomed dressed in appropriate civilian attire Behavior: friendly, courteous, polite Speech: Fluent, normal tone, normal rate Mood: depressed Affect: mood congruent Thought content: no HI noted, no SI noted, no delusions noted Psychosis: currently not responding to internal stimuli Thought Process: Linear coherent goal directed Judgment: fair. Insight: fair. Plan 1.Interval hx 2.Continue current medications 3.Review current labs 4.Pt had an opportunity to ask questions and discuss current treatment plan. 5.Supportive therapy was provided 6.Pt encouraged to consider group or individual therapy 7.Pt was in agreement with treatment plan. 8. Start sertraline 50 mg PO QAM for mood 9. Start visteril 50 mg PO Q6H PRN 10.Pt was educated on the risks benefits and side effects of current medications. 11. Coordinate D/C follow up with outpt psychiatrist. CC: Niki Cade MD Past Med Surg Social Fam HX - Past Medical History Medical history: atrial fibrillation, hyperlipidemia, hypertension - Past Psychiatric History Psychiatric history: Reports: depression Family psychiatric history: Yes Family History of Suicide: None - Past Surgical History Surgical History: angioplasty/stent - Social History Smoking Status: Current every day smoker Smokeless Tobacco Status: No Alcohol use: none Drug use: none - Family History Mother History Unknown: Yes Father History Unknown: Yes Medications & Allergies Rivaroxaban [Xarelto] 20 mg PO QAM 03/21/16 [History] Furosemide [Lasix] 40 mg PO DAILY 10/15/17 [History] Pregabalin [Lyrica] 150 mg PO TID 10/15/17 [History] 3 Allergy/AdvReac Type Severity Reaction Status Date / Time No Known Allergies Allergy Verified 10/15/17 19:41 Review of Systems Constitutional: Denies: fever, chills, weakness, weight change Eyes: Denies: eye pain, vision change Ears, Nose, Throat: Denies: ear pain, throat pain, dental pain, hearing loss, congestion Cardiovascular: Denies: chest pain, palpitations, dyspnea on exertion Respiratory: Denies: cough, dyspnea, wheezes Gastrointestinal: Denies: abdominal pain, nausea, vomiting, diarrhea, constipation Genitourinary male: Denies: urgency, dysuria, frequency, genital lesions Musculoskeletal: Denies: joint swelling, joint pain Integumentary: Denies: rash, lesions, pruritus Neurological: Denies: headache, weakness, numbness, memory loss Psychiatric: Reports: depression, anxiety, abnormal sleep pattern, anhedonia Endocrine: Denies: fatigue, heat or cold intolerance Hematologic/Lymphatic: Denies: easy bruising, lymphadenopathy Allergic/Immunologic: Denies: urticaria, itchy eyes Psychiatry Exam - Constitutional Vitals: Temp Pulse Resp BP Pulse Ox 97.8 F 62 16 135/73 95 10/20/17 17:53 10/20/17 17:53 10/20/17 17:53 10/20/17 17:53 10/20/17 17:53 General appearance: age & developmentally appropriate, well-groomed, well- nourished - Musculoskeletal Gait: normal Station: relaxed Strength & Tone: normal for patient - Psychiatric Patient Orientation: Yes Person, Yes Time, Yes Place, Yes Circumstance Level of alertness: Alert Behavior: calm, cooperative, tearful Psychomotor activity: Normal Eye Contact: Maintains Eye Contact Mood Description: Depressed Affect description: congruent with mood, dysphoric Speech Volume: Normal Speech pattern: normal rate, normal rhythm, normal tone Language & Vocabulary: consistent with education Thought Process: Intact, Logical, Linear, Goal Oriented Thought Content: Yes Intact Perceptual Disturbances: No Auditory hallucinations, No Visual hallucinations Attention Span Ability: Capable of Focused Attention Memory Description: Grossly Intact Patient Reliability: Reliable Historian Fund of knowledge: Yes average Intelligence Estimate: Average Judgment: Fair Insight: Partial Results - Labs Labs: Laboratory Last Values WBC 11.0 K/mcL (4.3-11.1) 10/20/17 06:23 RBC 5.71 M/mcL (4.19-5.50) H 10/20/17 06:23 Hgb 15.8 g/dL (12.9-16.9) 10/20/17 06:23 Hct 47.4 % (37.5-50.1) 10/20/17 06:23 MCV 83.0 fL (83.0-100.0) 10/20/17 06:23 MCH 27.7 pg (28.0-33.3) L 10/20/17 06:23 MCHC 33.3 g/dL (31.6-35.5) 10/20/17 06:23 RDW 19.3 % (11.5-14.5) H 10/20/17 06:23 Plt Count 277 K/mcL (140-400) 10/20/17 06:23 MPV 9.9 fL (9.4-12.4) 10/20/17 06:23 Immature Gran % 0.5 % (0-4) 10/20/17 06:23 Seg Neutrophils % 54.6 % 10/20/17 06:23 Lymphocytes % 34.5 % 10/20/17 06:23 Monocytes % 7.2 % 10/20/17 06:23 Eosinophils % 2.8 % 10/20/17 06:23 Basophils % 0.4 % 10/20/17 06:23 Neutrophils # 6.0 K/mcL (1.6-8.9) 10/20/17 06:23 Lymphocytes # 3.8 K/mcL (0.6-4.6) 10/20/17 06:23 Monocytes # 0.8 K/mcL (0.0-1.3) 10/20/17 06:23 Eosinophils # 0.3 K/mcL (0.0-0.6) 10/20/17 06:23 Basophils # 0.0 K/mcL (0.0-0.2) 10/20/17 06:23 PT 18.9 Seconds (9.4-12.1) H 10/16/17 01:54 INR 1.7 10/16/17 01:54 APTT 50.1 Seconds (26.0-36.0) H 10/16/17 01:54 Sodium 137 mEq/L (136-145) 10/20/17 06:23 Potassium 4.2 mEq/L (3.5-5.1) D 10/20/17 06:23 Chloride 96 mEq/L (98-107) L 10/20/17 06:23 Carbon Dioxide 32 mEq/L (23-29) H 10/20/17 06:23 BUN 22 mg/dL (6-20) H 10/20/17 06:23 Creatinine 1.28 mg/dL (0.70-1.30) 10/20/17 06:23 Est GFR ( Amer) > 60 (> 60) 10/20/17 06:23 Est GFR (Non-Af Amer) 58 (> 60) L 10/20/17 06:23 BUN/Creatinine Ratio 17 (6-26) 10/20/17 06:23 Glucose 106 mg/dL (70-105) H 10/20/17 06:23 Calculated Osmolality 288 (280-300) 10/20/17 06:23 Calcium 10.4 mg/dL (8.6-10.3) H 10/20/17 06:23 Magnesium 2.4 mg/dL (1.6-2.6) 10/16/17 01:54 Total Bilirubin 0.3 mg/dL (0.3-1.0) 10/16/17 01:54 AST 40 Units/L (13-39) H 10/16/17 01:54 ALT 27 Units/L (7-52) 10/16/17 01:54 Alkaline Phosphatase 59 Units/L (34-104) 10/16/17 01:54 Troponin I < 0.03 ng/mL (< 0.04) 10/16/17 09:24 B-Natriuretic Peptide 12 pg/mL (Less than 100) 10/15/17 20:00 Serum Total Protein 7.1 g/dL (6.4-8.9) 10/16/17 01:54 Albumin 4.4 g/dL (3.5-5.7) 10/16/17 01:54 Globulin 2.7 g/dL (2.4-3.5) 10/16/17 01:54 Albumin/Globulin Ratio 1.6 (1.1-2.2) 10/16/17 01:54 Triglycerides 213 mg/dL (< 150) H 10/16/17 01:54 Cholesterol 330 mg/dL (< 200) H 10/16/17 01:54 LDL Cholesterol, Calc 228 mg/dL (0-99) H 10/16/17 01:54 VLDL Cholesterol, Calc 43 mg/dL (< 31) H 10/16/17 01:54 HDL Cholesterol 59 mg/dL (40-59) 10/16/17 01:54 Cholesterol/HDL Ratio 5.6 (0-4.9) H 10/16/17 01:54 Free PSA NOT DONE ng/mL 10/16/17 01:54 % Free PSA NOT DONE % 10/16/17 01:54 Total PSA 0.4 ng/mL (0.0-4.0) 10/16/17 01:54 TSH 59.830 mcIU/mL (0.340-5.600) H 10/18/17 05:31 Free T4 < 0.25 ng/dl (0.70-2.00) L 10/18/17 05:31 Urine Color Yellow (Yellow) 10/19/17 20:32 Urine Clarity Clear (Clear) 10/19/17 20:32 Urine pH 6.5 pH Units (5.0-8.0) 10/19/17 20:32 Ur Specific [place] 1.006 (1.010-1.025) L 10/19/17 20:32 Urine Protein Trace mg/dL (Neg-Trace) 10/19/17 20:32 Urine Glucose (UA) Normal mg/dL (Normal) 10/19/17 20:32 Urine Ketones Negative mg/dL (Negative) 10/19/17 20:32 Urine Blood Large (Negative) H 10/19/17 20:32 Urine Nitrite Negative (Negative) 10/19/17 20:32 Urine Bilirubin Negative (Negative) 10/19/17 20:32 Urine Urobilinogen Normal mg/dL (Normal) 10/19/17 20:32 Ur Leukocyte Esterase Trace (Negative) H 10/19/17 20:32 Urine Microscopic RBC 15-30 per hpf (0-3) H 10/19/17 20:32 Urine Microscopic WBC 0-3 per hpf (0-3) 10/19/17 20:32 Ur Squamous Epith Cells Moderate per lpf (None-Few) H 10/19/17 20:32 Urine Bacteria None Seen per hpf (None-Few) 10/19/17 20:32 Hyaline Casts None Seen per lpf (None-Few) 10/19/17 20:32 Ur Culture Indicated? YES (NO) A 10/19/17 20:32 Specimen Rejected Hemolyzed 10/19/17 07:13 Consult Discharge Plan - Plan Additional Instructions: 1. Start sertraline 50 mg PO QAM for mood 2. Start visteril 50 mg PO Q6H PRN 3. Coordinate D/C follow up with outpt psychiatrist. 4. Coordinate out pt therapy upon d/c Referrals: Rodri Adams DO [Primary Care Provider] -
[2017-10-20] MEDS ORDERED: hydrOXYzine pamoate 25 MG CAPSULE PO PRN (18:47)
[2017-10-20] MEDS ORDERED: traZODone 50 MG TABLET PO PRN (21:00)
[2017-10-21 05:27] LABS: Basophils % 0.2 %; Eosinophils # 0.4 K/mcL (0.0-0.6); Eosinophils % 3.7 %; Hematocrit 46.7 % (37.5-50.1); Hemoglobin 15.4 g/dL (12.9-16.9); Immature Granulocytes % 0.2 % (0-4); Lymphocytes # 3.2 K/mcL (0.6-4.6); Lymphocytes % 33.6 %; Mean Corpuscular Hemoglobin 27.2 pg (28.0-33.3); Mean Corpuscular Volume 82.4 fL (83.0-100.0); Monocytes # 0.8 K/mcL (0.0-1.3); Monocytes % 8.1 %; Neutrophils # 5.1 K/mcL (1.6-8.9); Platelet Count 249 K/mcL (140-400); Red Blood Count 5.67 M/mcL (4.19-5.50); Red Cell Distribution Width 18.7 % (11.5-14.5); Segmented Neutrophils % 54.2 %
[2017-10-21 05:54] LABS: BUN/Creatinine Ratio 20 (6-26); Blood Urea Nitrogen 21 mg/dL (6-20); Calcium 9.9 mg/dL (8.6-10.3); Carbon Dioxide 29 mEq/L (23-29); Chloride 98 mEq/L (98-107); Glucose 108 mg/dL (70-105); Osmolality,Calculated 288 (280-300); Potassium 3.1 mEq/L (3.5-5.1); Sodium 137 mEq/L (136-145); eGFR For African Americans > 60 (> 60); eGFR For Non-African Americans > 60 (> 60)
[2017-10-21] MEDS: Nicotine 21 MG PATCH.TD24 TD SCH (08:35)
[2017-10-21] MEDS: Aspirin Enteric Coated 81 MG Tablet PO SCH (08:36)
[2017-10-21] MEDS: Pregabalin 75 MG CAPSULE PO SCH ×2 (08:36→14:12)
[2017-10-21] MEDS: Loratadine 10 MG TABLET PO SCH (08:36)
[2017-10-21] MEDS: Famotidine 20 MG TABLET PO SCH (08:37)
[2017-10-21] MEDS ORDERED: Furosemide 20 MG TABLET PO SCH (09:00)
--- NOTE | 2017-10-21 09:03 | Cardiology Progress Note ---
Date of Encounter: 10/21/17 Time of Encounter: 09:00 Assessment and Plan (1) CAD (coronary artery disease) Current Visit: Yes Status: Chronic Per Cardiology: S/P LHC: Lesion Findings/Interventions * Left Main Coronary Artery The LMCA is angiographically free of disease. 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 Diffuse disease distally. The 1st Diagonal is angiographically free of disease. * Circumflex There is a 50% stenosis in the Proximal Circumflex. The lesion has a MELINA flow of 3. There is a 60% stenosis in the 1st Marginal. The lesion has a MELINA flow of 3. * Ramus The Ramus is angiographically free of disease. * Right Coronary Artery There is a 12 mm long, 95% stenosis in the RPLB. The lesion has a MELINA flow of 2 and has no thrombus present. An intervention was performed on the RPAV with a final stenosis of 0%. There were no lesion complications. The final MELINA flow was 3. On asa, plavix, statin, BB. Will resume Xarelto (hx PAF). Patient aware of triple therapy, current H&H stable, denies any bleeding. Post procedure education provided. Has CR c/s. Cardiology will sign off, reconsult as needed, follow-up arranged. All questions answered. Qualifiers: Coronary Disease-Associated Artery/Lesion type: [place] artery [place] vs. transplanted heart: [place] heart Associated angina: without angina Qualified Code(s): I25.10 - Atherosclerotic heart disease of [place] coronary artery without angina pectoris (2) Hypothyroidism Current Visit: Yes Status: Chronic Per Cardiology: TSH noted to be high 50's, on synthroid. Management per primary team. Qualifiers: Hypothyroidism type: other Qualified Code(s): E03.8 - Other specified hypothyroidism (3) PAF (paroxysmal atrial fibrillation) Current Visit: Yes Status: Chronic Per Cardiology: Apparent history of paroxysmal atrial fibrillation. Discussion w patient/family: The assessment and plan as outlined above was discussed with the patient who expressed understanding and agreement. All questions were answered. Thank you for involving us in the care of your patient. Please call with any questions. Subjective Principal diagnosis: CAD Interval history: Denies any chest pain, shortness of breath, palpitations. Denies any concerns from his right wrist site. Objective Vital Signs, Last 4 Hours Temp Pulse Resp BP Pulse Ox 10/21/17 07:30 97.8 F 80 17 134/87 96 General: Conversant, No Apparent Distress HEENT: Atraumatic, Normocephaly, Mucus Membranes Moist Neck: No JVD, Normal carotid pulses Cardiac: Reg Rate and Rhythm, Normal S1 and S2, No Murmur Lungs: Normal Breath Sounds, No Wheeze, Rales, Rhonchi Neuro: Alert and responsive, No focal deficits noted Abdomen: Soft, Non-Tender Skin: No rashes noted on visualized skin, Other (Right wrist site dry and intact , no hematoma, no bleeding, no ecchymosis, right radial pulse 2+ palpable) Musculoskeletal: No Chest Wall Tenderness Extremities: No Clubbing, No Cyanosis, No Edema, Normal Pulses Results 10/21/17 04:49 10/21/17 04:49 Lab Results Laboratory Tests 10/21/17 10/21/17 04:49 04:49 Hgb 15.4 Hct 46.7 Potassium 3.1 L D Creatinine 1.04 Est GFR (Non-Af Amer) > 60 Active Medications Acetaminophen (Tylenol) 650 mg PO Q6HR PRN PRN Reason: Mild Pain/Fever Stop: 04/17/18 00:37 Last Admin: 10/17/17 07:05 Dose: 650 mg Aspirin (Aspirin Ec) 81 mg PO DAILY [facility] Stop: 04/18/18 09:01 Last Admin: 10/21/17 08:36 Dose: 81 mg Atorvastatin Calcium (Lipitor) 80 mg PO HS [facility] Stop: 04/18/18 21:01 Last Admin: 10/19/17 21:24 Dose: 80 mg Chlorthalidone (Chlorthalidone) 25 mg PO DAILY [facility] Stop: 04/21/18 09:01 Last Admin: 10/21/17 08:35 Dose: 25 mg Clopidogrel Bisulfate (Plavix) 75 mg PO DAILY [facility] Stop: 04/22/18 09:01 Last Admin: 10/21/17 08:36 Dose: 75 mg Famotidine (Pepcid) 20 mg PO DAILY [facility] PRN Reason: Protocol Stop: 04/21/18 11:16 Last Admin: 10/21/17 08:37 Dose: 20 mg Furosemide (Lasix) 20 mg PO DAILY [facility] Stop: 04/22/18 09:01 Last Admin: 10/21/17 08:36 Dose: 20 mg Hydrocortisone Acetate (Hydrocortisone Lotion) 1 appl TP BID PRN PRN Reason: Rash/Itching Stop: 04/21/18 11:11 Hydroxyzine Pamoate (Hydroxyzine Pamoate) 50 mg PO Q6H PRN PRN Reason: Anxiety Stop: 04/21/18 18:48 Levothyroxine Sodium (Synthroid) 100 mcg PO DAILY@0630 [facility] Stop: 04/19/18 07:58 Last Admin: 10/21/17 05:41 Dose: 100 mcg Loratadine (Claritin) 10 mg PO DAILY [facility] PRN Reason: Protocol Stop: 04/21/18 11:16 Last Admin: 10/21/17 08:36 Dose: 10 mg Metoprolol Tartrate (Lopressor) 12.5 mg PO BID [facility] Stop: 04/20/18 21:01 Last Admin: 10/21/17 08:36 Dose: 12.5 mg Naloxone HCl (Narcan) 0.4 mg IVP Q2MIN PRN PRN Reason: SEE COMMENTS Stop: 04/17/18 00:37 Nicotine (Nicoderm) 21 mg TD DAILY [facility] PRN Reason: Protocol Stop: 04/17/18 10:01 Last Admin: 10/21/17 08:35 Dose: 21 mg Ondansetron HCl (Zofran) 4 mg IVP Q6HR PRN; Protocol PRN Reason: Nausea And Vomiting Stop: 04/21/18 16:00 Potassium Chloride (Potassium Chloride) 20 meq PO DAILY [facility] Stop: 04/21/18 09:01 Last Admin: 10/21/17 08:36 Dose: 20 meq Pregabalin (Lyrica) 150 mg PO TID [facility] Stop: 04/17/18 09:01 Last Admin: 10/21/17 08:36 Dose: 150 mg Sertraline HCl (Zoloft) 50 mg PO DAILY [facility] Stop: 04/21/18 19:01 Last Admin: 10/21/17 08:36 Dose: 50 mg Tamsulosin HCl (Flomax) 0.4 mg PO DAILY [facility] PRN Reason: Protocol Stop: 04/18/18 09:01 Last Admin: 10/21/17 08:35 Dose: 0.4 mg Tramadol HCl (Ultram) 50 mg PO Q6HR PRN PRN Reason: Moderate Pain Stop: 04/17/18 00:37 Last Admin: 10/19/17 21:25 Dose: 50 mg Trazodone HCl (Trazodone) 50 mg PO HS PRN PRN Reason: Insomnia Stop: 04/21/18 21:01 Last Admin: 10/20/17 22:10 Dose: 50 mg - Imaging and Cardiology Cardiac cath: report reviewed - VTE Documentation of Mechanical Device: Intermittent pneumatic compression device Consult Discharge Plan - Plan Additional Instructions: 1. Start sertraline 50 mg PO QAM for mood 2. Start visteril 50 mg PO Q6H PRN 3. Coordinate D/C follow up with outpt psychiatrist. 4. Coordinate out pt therapy upon d/c Referrals: Rodri Adams DO [Primary Care Provider] -
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
[2017-10-21 16:24] VITALS: BP 122/71
[2017-10-21] MEDS ORDERED: *HR* Rivaroxaban 10 MG TABLET PO SCH (17:00)
--- NOTE | 2017-10-21 17:53 | Discharge Summary ---
- NOTES TO OUTPATIENT PROVIDER Notes to Outpatient Provider: Follow-up with psychiatry and neurology as an outpatient. Follow up with primary care provider for follow-up on TSH levels for newly diagnosed hypothyroid Orders not resulted at time of discharge: Pending orders 10/20/17 15:59 ECG 12 lead ECG [ECG] Stat 10/21/17 06:00 ECG 12 lead ECG [ECG] AM 0600 Date of Encounter: 10/21/17 Time of Encounter: 11:00 - Discharge Diagnosis (1) Chest pain Priority: Primary Status: Acute Qualifiers: Chest pain type: precordial pain Qualified Code(s): R07.2 - Precordial pain (2) Nonspecific ST-T wave electrocardiographic changes Priority: Primary Status: Acute (3) Urinary retention Priority: Primary Status: Acute (4) Periorbital edema Priority: Secondary Status: Resolved (5) Essential hypertension Priority: Secondary Status: Chronic (6) Hyperlipidemia Priority: Secondary Status: Chronic Qualifiers: Hyperlipidemia type: mixed hyperlipidemia Qualified Code(s): E78.2 - Mixed hyperlipidemia (7) Hypothyroidism Priority: Primary Status: Chronic Qualifiers: Hypothyroidism type: other Qualified Code(s): E03.8 - Other specified hypothyroidism (8) Hypokalemia Priority: Secondary Status: Acute (9) Depression Priority: Primary Status: Suspected Qualifiers: Depression Type: major depressive disorder Major depression recurrence: single episode Active/Remission status: currently active Psychotic features : without psychotic features Qualified Code(s): F32.2 - Major depressive disorder, single episode, severe without psychotic features Hospital course: Patient is a 56-year-old male with past medical history significant for atrial fibrillation, hyperlipidemia, hypertension and mood disorder who presents to the ER on 10/19/17 due to chest pain in addition to difficulty urinating. In the ER, imaging showed no evidence of hydronephrosis. However, he did have significant relief once a Mejia catheter was placed. He was subsequently admitted to hospitalist service for further workup and care. Of note, there was report by the ER staff that the patient was having chest pain. During patients hospital stay ACS workup was initiated and patient had an abnormal stress tests. As a result cardiology was consulted with recommendations of left heart catheterization. Cardiology with further recommendations for patient to continue on aspirin, Plavix, statin and beta fabi. Patient was also restarted on Xarelto. Urology was also consulted due to urinary retention with recommendations to continue Mejia catheter as an outpatient and to follow-up with urology for a voiding trial in one week. Patient was also started on Flomax. - Time Spent with Patient Total time spent providing and/or coordinating discharge services: Less than 30 minutes - Discharge Medications Prescriptions: Atorvastatin [Lipitor] 80 mg PO HS #60 tablet Chlorthalidone 25 mg PO DAILY #30 tablet Clopidogrel [Plavix] 75 mg PO DAILY #30 tablet hydrOXYzine pamoate [HydrOXYzine Pamoate] 50 mg PO Q6H PRN #60 capsule PRN Reason: Anxiety Levothyroxine [Synthroid] 100 mcg PO DAILY@0630 #30 tablet Metoprolol [Lopressor] 12.5 mg PO BID #15 tablet Potassium Chloride 20 meq PO DAILY #30 tab.er.prt Sertraline [Zoloft] 50 mg PO DAILY #30 tablet Tamsulosin [Flomax] 0.4 mg PO DAILY #30 cap.er.24h traZODone [TraZODone] 50 mg PO HS PRN #30 tablet PRN Reason: Insomnia Home Medications: Rivaroxaban [Xarelto] 20 mg PO QAM 03/21/16 [History] Furosemide [Lasix] 40 mg PO DAILY 10/15/17 [History] Pregabalin [Lyrica] 150 mg PO TID 10/15/17 [History] Aspirin Enteric Coated [Aspirin EC] 81 mg PO DAILY tablet. 10/21/17 [Rx] Atorvastatin [Lipitor] 80 mg PO HS #60 tablet 10/21/17 [Rx] Chlorthalidone 25 mg PO DAILY #30 tablet 10/21/17 [Rx] Clopidogrel [Plavix] 75 mg PO DAILY #30 tablet 10/21/17 [Rx] Levothyroxine [Synthroid] 100 mcg PO DAILY@0630 #30 tablet 10/21/17 [Rx] Metoprolol [Lopressor] 12.5 mg PO BID #15 tablet 10/21/17 [Rx] Potassium Chloride 20 meq PO DAILY #30 tab.er.prt 10/21/17 [Rx] Sertraline [Zoloft] 50 mg PO DAILY #30 tablet 10/21/17 [Rx] Tamsulosin [Flomax] 0.4 mg PO DAILY #30 cap.er.24h 10/21/17 [Rx] hydrOXYzine pamoate [HydrOXYzine Pamoate] 50 mg PO Q6H PRN #60 capsule 10/21/17 [Rx] traZODone [TraZODone] 50 mg PO HS PRN #30 tablet 10/21/17 [Rx] Allergies/Adverse Reactions: 3 Allergy/AdvReac Type Severity Reaction Status Date / Time No Known Allergies Allergy Verified 10/15/17 19:41 Date of admission: 10/19/17 15:56 Primary care physician: Rodri Adams DO Consults: 10/20/17 05:21 Consult to Psychiatry [CONS] Routine Consulting Provider: [facility] [place] Reason consult: Medication recommendation Other reason and/or additional details: RN reprots major depression and anhedonia Time Notified: 05:22 Call Completed: Yes 10/20/17 15:59 Consult to Cardiac Rehabilitation-Phase1 [CONS] Routine Comment: Reason for Consult: post op PCI Call Completed: Yes 10/21/17 11:40 Consult to Urology [CONS] Routine Consulting Provider: [facility] [place] Reason for Consult: Urinary retention Call Completed: Yes - Constitutional Vitals: Temp Pulse Resp BP Pulse Ox 98.2 F 68 23 122/71 91 10/21/17 16:22 10/21/17 16:22 10/21/17 16:22 10/21/17 16:22 10/21/17 16:22 General appearance: Present: cooperative, A&O X 3, pleasant, no acute distress, obese, answers questions appropriately - Respiratory Respiratory exam: Present: CTAB. Absent: accessory muscle use, rales, rhonchi, wheezes - Cardiovascular Cardiovascular exam: Present: RRR, +S1, +S2. Absent: diastolic murmur, gallop, rubs, systolic murmur - Patient Status Disposition: Home, Self-Care Condition: Fair - Discharge Instructions Follow Up With: Rodri Adams DO [Primary Care Provider] - Additional Instructions: 1. Start sertraline 50 mg PO QAM for mood 2. Start visteril 50 mg PO Q6H PRN 3. Coordinate D/C follow up with outpt psychiatrist. 4. Coordinate out pt therapy upon d/c - VTE Documentation of Mechanical Device: Intermittent pneumatic compression device
== END 2017-10-21 18:32 | disposition home or self-care (01) | DRG 247 ==
LOC: EMEROO 19:14 → 2ANU 19:14 → SUATTDRO 22:51 → 2ANU 23:19 → SUATTDRO 10-19 15:56
PROVIDERS: ADMIT Family Medicine; ATTEND Hospitalist